=== PATIENT | female | born 1960 | race Caucasian/White ===

== ENCOUNTER 2021-05-04 14:17 | Emergency (ER) | payer MEDICAID ==
[~2021-05-04] VITALS: Ht 154.9 cm; Wt 47.6 kg
[2021-05-04] MEDS ORDERED: SERT25TA PO (14:45)
[2021-05-04] MEDS ORDERED: ASPI81TA31 PO (14:45)
[2021-05-04 15:57] LABS: HEMATOCRIT 39.2 % (31.2-41.9); MEAN CORPUSCULAR HEMOGLOBIN 29.1 uug (24.7-32.8); MEAN CORPUSCULAR VOLUME 87.9 fL (75.5-95.3); PLATELET COUNT (AUTO) 202 K/uL (179-408)
[2021-05-04 15:59] LABS: CREATININE 0.9 mg/dL (0.6-1.3); POTASSIUM 3.9 mmol/L (3.5-5.1)
[2021-05-04 16:05] LABS: BILIRUBIN,TOTAL 0.4 mg/dL (0.2-1.0); TOTAL PROTEIN, SERUM 7.9 g/dL (6.4-8.2)
[2021-05-04] MEDS ORDERED: IV NORMAL SALINE 100 ML BAG IV ONE (16:15)
[2021-05-04 16:35] LABS: *BILIRUBIN,URIN NEGATIVE (NEGATIVE); *BLOOD, URINE 2+ (NEGATIVE); *CLARITY,URINE CLEAR (CLEAR); *COLOR,URINE LIGHT YELLOW (YELLOW); *KETONES,URINE NEGATIVE (NEGATIVE); *UROBILINOGEN,URINE 0.2 E.U./dl (NORMAL); LEUKOCYTE ESTERASE ,URINE NEGATIVE (NEGATIVE); NITRITE, URINE NEGATIVE (NEGATIVE); PH,URINE 5.5 (5.0-8.0); UGLUCOSE NEGATIVE (NEGATIVE)
[2021-05-04] MEDS ORDERED: NITR100C11 PO (16:36)
[2021-05-04 16:41] LABS: BACTERIA,URINE NONE SEEN /HPF (NONE SEEN); SQUAMOUS EPITHELIAL CELL,UR NONE SEEN /HPF (NONE SEEN); WBC,URINE 0-3 /HPF (0-3)
[2021-05-04] MEDS ORDERED: CEFTRIAXONE 1 G in IV DEXTROSE 5% 50 ML IV ONE (16:45)
[2021-05-04] MEDS ORDERED: PHENAZOPYRIDINE HCL 100 MG TABLET PO ONE (16:45)
[2021-05-04] MEDS ORDERED: PHENAZOPYRIDINE HCL 100 MG TABLET ONE (16:52)
[2021-05-04] MEDS ORDERED: CEFTRIAXONE /D5W 50ML IVPB **ER PYXIS IV ONE (16:53)
[2021-05-04] MEDS ORDERED: KETOROLAC TROMETHAMINE 15 MG INJ IVP ONE (17:00)
[2021-05-04] MEDS ORDERED: HYDROCODONE/APAP 10-325 MG TABLET PO ONE (17:00)
[2021-05-04] MEDS ORDERED: KETOROLAC TROMETHAMINE 15 MG INJ ONE (17:04)
--- NOTE | 2021-05-04 17:09 | NUR ---
Pt constantly ambulating to the restroom. States voiding a few drops each time and feeling pressure. States she is "possibly passing a stone". Also states slight improvement in pain/pressure following medication administration.
--- NOTE | 2021-05-04 17:17 | NUR ---
Pt refuses contrast. Provider notified.
--- NOTE | 2021-05-04 17:26 | NUR ---
IV NS complete.
--- NOTE | 2021-05-04 17:28 | NUR ---
Pt taken to CT via gurney by tech. Pt in stable condition at time of transport.
--- NOTE | 2021-05-04 17:53 | NUR ---
Pt return from CT. Continues to states improvement in pain/pressure. Ambulated to restroom then will have dinner tray.
[2021-05-04 19:00] VITALS: BP 127/75
--- NOTE | 2021-05-04 19:00 | NUR ---
Saline lock D/C, clear and intact. Patient discharged to home in stable condition. Written and verbal after care instructions given. Patient verbalizes understanding of instructions. Stressed follow up or return to ER for worsening s/s.
== END 2021-05-04 19:01 | disposition home or self-care (01) ==
LOC: ER 14:22
DX: N13.2 Hydronephrosis with renal and ureteral calculous obstruction (principal); I44.4 Left anterior fascicular block; R94.31 Abnormal electrocardiogram [ECG] [EKG]; Z79.82 Long term (current) use of aspirin; J45.909 Unspecified asthma, uncomplicated
CPT/HCPCS: 36415; 74176; 80053; 81001; 84484; 85025; 87426; 96360; 99284; J1885; 70030-TC; A4663; J0696; J7030